=== PATIENT | female | born 1980 | race Caucasian/White ===

== ENCOUNTER 2017-05-03 05:05 | Inpatient (IN) | payer OTHER ==
[2017-05-03] VITALS (7 sets, daily range): BP systolic 100–134; BP diastolic 57–72
[~2017-05-03] VITALS: Ht 170.2 cm; Wt 120.2 kg
[2017-05-03] MEDS ORDERED: BACITRACIN 50000 UNITS/VIAL ONE ×2 (05:38→06:54)
[2017-05-03] MEDS ORDERED: KETOROLAC TROMETHAMINE INJ 30 MG/ML VIAL ONE (05:38)
[2017-05-03] MEDS ORDERED: BUPIVACAINE MPF 0.5% W/EPI INJ 30 ML VIAL ONE (05:38)
[2017-05-03] MEDS ORDERED: IV SET PRIMARY 1 EA INFUS.SET MC ONE (05:44)
[2017-05-03] MEDS ORDERED: SECONDARY IV SET 1 EA INFUS.SET MC ONE ×2 (05:44→14:09)
[2017-05-03] MEDS ORDERED: IV LR 1000 ML 1,000 ML ONE (05:44)
[2017-05-03] MEDS ORDERED: NEEDLELESS EST SET LARGE BORE 1 EA INFUS.SET MC ONE ×2 (05:44→05:46)
[2017-05-03] MEDS ORDERED: CEFAZOLIN SODIUM/DEXTROSE,ISO 50 ML IV ONE (05:44)
[2017-05-03] MEDS ORDERED: FENTANYL PF 250MCG/5ML AMPUL ONE (06:46)
[2017-05-03] MEDS ORDERED: HYDROMORPHONE INJ 2 MG/ML DISP.SYRIN ONE (07:11)
[2017-05-03] MEDS ORDERED: BUPIVACAINE 0.5 % PF 150 MG/30 ML VIAL ONE (07:47)
[2017-05-03] MEDS ORDERED: CARI350T PO (08:58)
[2017-05-03] MEDS ORDERED: OMEP20TA20 PO (08:58)
[2017-05-03] MEDS ORDERED: IBUP-1482 PO (08:58)
[2017-05-03] MEDS ORDERED: FOLI1TAB16 PO (08:58)
[2017-05-03] MEDS ORDERED: ACET-907 PO (08:58)
[2017-05-03] MEDS ORDERED: HYDROMORPHONE 1 MG/1 ML DISP.SYRIN ONE (09:01)
--- NOTE | 2017-05-03 09:50 | NUR ---
MS RN NOTES RECEIVED PATIENT FROM SURGERY A/OX4 DENIES SOB, DIFFICULTY BREATHING AND STATES PAIN 8/10 AT THIS TIME FROM MOVING. WILL NEED TO SPEAK WITH MD IF CAN GIVE ANY MORE PAIN MEDICATIONS PATIENT WAS JUST GIVEN IN POST OP 0915 DILAUDID. PATIENT NEEDS IN REACH, IMMOBILIZER ON CAP REFILL AND PULSES PRESENT BELOW IMMOBILIZER. PATIENT WITH CALL LIGHT IN REACH, BED LOWERED AND LOCKED, RAILS UXP3 FOR SAFETY AND WILL ROUND Q2H OR LESS PER NEEDS. BED ALARM ON
--- NOTE | 2017-05-03 10:00 | NUR ---
MS RN NOTES NOTIFIED AND SPOKE WITH DR TERRAZAS ABOUT ADMISSION. NOTIFIED PATIENT CRYING IN PAIN AND PER MD ORDER DIALUDID 1MG Q3H PRN. PER PATIENT SHE HAS TAKEN THIS MEDICATION IN THE PAST WITH NO REACTION. OK TO GIVE. NOTIFIED MD PATIENT IS ASTHMATIC AND OK ORDER PRN Q4H ALBUTEROL TREATMENTS FOR PATIENT. MD NGUYEN ALREADY CONTACTED FOR PAIN MANAGEMENT CONSULT AND IS AWARE
[2017-05-03] MEDS ORDERED: HYDROMORPHONE 1 MG/1 ML DISP.SYRIN IV PRN (10:30)
[2017-05-03] MEDS ORDERED: DULCOLAX 10 MG/SUPP.RECT RC PRN (11:00)
[2017-05-03] MEDS ORDERED: SENOKOT 8.6 MG TABLET PO PRN (11:00)
[2017-05-03] MEDS ORDERED: COLACE 250 MG CAPSULE PO PRN (11:00)
[2017-05-03] MEDS ORDERED: ZOFRAN 4mg/2ML IV PRN (11:00)
[2017-05-03] MEDS ORDERED: AMBIEN 5 MG TABLET PO PRN (11:00)
[2017-05-03] MEDS ORDERED: PROMETHAZINE HCL 25 MG/ML AMPUL IM PRN (11:30)
[2017-05-03] MEDS ORDERED: ALBUTEROL FS 2.5 MG/0.5 ML VIAL.NEB NEB PRN (11:30)
[2017-05-03] MEDS ORDERED: MENTHOL/CETYLPYRD (CEPACOL) 1 LOZ LOZENGE PO PRN (11:30)
[2017-05-03] MEDS ORDERED: oxyCODONE IR immediate release 5 MG CAPSULE PO PRN ×2 (11:30→23:30)
[2017-05-03] MEDS ORDERED: ALBUTEROL FS 2.5 MG/0.5 ML VIAL.NEB NEB SCH (11:30)
[2017-05-03] MEDS ORDERED: MAG HYDROX/AL HYDROX/SIMETH 30 ML UDC PO PRN (11:30)
[2017-05-03] MEDS ORDERED: BISACODYL SUPP (10 MG) 10 MG/SUPP.RECT SUPP.RECT RC PRN (11:30)
[2017-05-03] MEDS ORDERED: NALOXONE HCL 0.4 MG/ML AMPUL IV PRN (11:30)
[2017-05-03] MEDS ORDERED: CLONIDINE HCL 0.1 MG TABLET PO PRN (11:30)
[2017-05-03] MEDS ORDERED: MAGNESIUM HYDROXIDE 30 ML UDC PO PRN (11:30)
[2017-05-03] MEDS ORDERED: diphenhydrAMINE HCL 50 MG CAPSULE PO PRN (11:30)
[2017-05-03] MEDS ORDERED: IV SET PRIMARY PUMP SET 1 EA INFUS.SET MC ONE (12:31)
[2017-05-03] MEDS: IV D5/0.45 NACL 1,000 ML IV PRN (12:37)
[2017-05-03] MEDS: oxyCODONE IR immediate release 5 MG CAPSULE PO PRN (12:55)
[2017-05-03] MEDS: ANCEF 1 G in IV D5W 50 ML IV SCH ×2 (14:16→22:49)
[2017-05-03] MEDS: HYDROMORPHONE 1 MG/1 ML DISP.SYRIN SQ PRN ×3 (14:21→20:55)
--- NOTE | 2017-05-03 16:50 | NUR ---
MS RN NOTES PATIENT REFUSING DVT PUMPS. EDUCATED ON IMPORTANCE AND PATIENT STILL REFUSING. STILL HAS COMPRESSION SOCKS ON. PATIENT DEMANDING TO GO SMOKE. EDUCATED ON RISKS OF SMOKING AND STATED WE HAVE A NICODERM PATCH I CAN GIVE HER. PATIENT REFUSING. SIGNED SMOKING PAPER
[2017-05-03] MEDS: DOCUSATE SODIUM 100 MG CAPSULE PO SCH (17:30)
--- NOTE | 2017-05-03 18:52 | NUR ---
MS RN CLOSING PATIENT STABLE ALL DUE MEDS GIVEN AND ALL NEEDS MET. PAIN MANAGED WITH PRN MEDICATIONS AND NON PHARM MEASURES. PATIENT WITH IMMOBILIZER STILL ON AND STILL REFUSING DVT PUMPS. PATIENT EDUCATED AND STATES UNDERSTANDING OF THEIR USE. PATIENT CALL LIGHT IN REACH, BED LOWERED AND LOCKED, RAILS UPX3 FOR SAFETY AND WILL ENDORSE CARE TO RN FOR RUSSELL
--- NOTE | 2017-05-03 19:30 | NUR ---
MS RN INITIAL NOTE RECEIVED PT AWAKE AND ALERT ORIENTED X4, S/P LEFT KNEE ARTHROTOMY, ACCORDING TO PT PAIN IS BEING WELL MANAGED WITH CURRENT PAIN MEDICATION REGIMENT, PT IS CLEAN/DRY AND COMFORTABLE, NO RESPIRATORY DISTRESS NOTED DURING PHYSICAL ASSESSMENT, WILL CONTINUE TO MONITOR CLOSELY.
[2017-05-03] MEDS ORDERED: PANTOPRAZOLE 40 MG TABLET.DR PO SCH (22:00)
[2017-05-03] MEDS ORDERED: NICOTINE PATCH (21MG) 21 MG PATCH.TD24 TD ONE (22:36)
[2017-05-03] MEDS ORDERED: NICOTINE PATCH (21MG) 21 MG PATCH.TD24 TD SCH (23:00)
[2017-05-04] MEDS: HYDROMORPHONE 1 MG/1 ML DISP.SYRIN SQ PRN ×4 (01:54→12:31)
--- NOTE | 2017-05-04 07:11 | NUR ---
MS RN CLOSING NOTE PT REMAINED STABLE DURING SORT LINE, NO SIGNIFICANT CHANGES IN STATUS NOTED, WILL ENDORSE TO INCOMING NURSE FOR RUSSELL.
--- NOTE | 2017-05-04 07:30 | NUR ---
MS RN OPENING RECEIVED PATIENT A/OX4 PAIN MANAGED WITH PRN MEDICATIONS. PATIENT DENIES SOB OR DIFFICULTY BREATHING. IMMOBILIZER IN PLACE ON LEFT LEG. PATIENT WITH CALL LIGHT IN REACH, BED LOWERED AND LOCKED, RAILS UPX3 FOR SAFETY AND WILL ROUND Q2H OR LESS PER NEEDS
[2017-05-04] MEDS: IV D5/0.45 NACL 1,000 ML IV PRN (07:43)
[2017-05-04] MEDS: oxyCODONE IR immediate release 5 MG CAPSULE PO PRN (07:43)
--- NOTE | 2017-05-04 07:44 | NUR ---
MS RN NOTES PATIENT REQUESTING OXY UNABLE TO WAIT FOR 15MG TO BE VERIFIED. GAVE 5MG PER PATIENT REQUEST
[2017-05-04 08:00] VITALS: BP 145/87
[2017-05-04] MEDS: DOCUSATE SODIUM 100 MG CAPSULE PO SCH (08:01)
[2017-05-04] MEDS ORDERED: NICOTINE PATCH (21MG) 21 MG PATCH.TD24 TD SCH (09:00)
[2017-05-04] MEDS ORDERED: FOLIC ACID 1 MG TABLET PO SCH (09:00)
--- NOTE | 2017-05-04 11:40 | NUR ---
MS RN NOTES MESSAGE TO DR AVALOS /VINCE TO SEE IF ANY DISCHARGE INFORMATION NEEDING TO BE GIVEN TO PATIENT PRIOR TO DC
--- NOTE | 2017-05-04 13:41 | NUR ---
MS RN NOTES CASE MANAGEMENT CALLED AND THEY WILL SET UP HOME PHYSICAL THERAPY FOR PATIENT. PATIENT WILL HAVE HELP FROM FAMILY AT HOME. SPOKE WITH VINCE PEREIRA AND PATIENT IS CLEARED FOR DISCHARGE SHE ALREADY HAS AN APPOINTMENT SET UP WITH THEIR OFFICE
--- NOTE | 2017-05-04 14:12 | NUR ---
MS SUPERVISOR PACKING ROOM PATIENT EDUCATED ON DC AND STATED UNDERSTANDING. IV REMOVED PRESSURE AND DRESSING APPLIED NO BLEEDING. PATIENT GIVEN RX FROM DR NGUYEN AND EDUCATED ON DC. PATIENT BELONGINGS ALL ACCOUNTED FOR AND SIGNED. DC SIGNED. PATIENT ASSISTED TO WHEELCHAIR AND BSC ORDERED FOR PATIENT AND WALKER TAKEN WITH PATIENT WELL. PATIENT LEFT IN STABLE CONDITION NO COMPLICATIONS NOTED. ASSISTED TO CAR WITH SHANTA MONTOYA AND MYSELF.
== END 2017-05-04 14:10 | disposition home health service (06) | DRG 500 ==
LOC: DS 05:05 → MEDSG2 10:01
PROVIDERS: ADMIT Specialist; ATTEND Nurse Practitioner Acute Care
PROC: 0LUR07Z Supplement Left Knee Tendon with Autologous Tissue Substitute, Open Approach (ICD-10-PCS; principal; 2017-05-03 07:09)
PROC: 0LBW0ZZ Excision of Left Foot Tendon, Open Approach (ICD-10-PCS; principal; 2017-05-03 07:09)
DX: S76.112A Strain of left quadriceps muscle, fascia and tendon, initial encounter (principal); E43 Unspecified severe protein-calorie malnutrition; Z68.41 Body mass index [BMI] 40.0-44.9, adult; F17.210 Nicotine dependence, cigarettes, uncomplicated; J45.909 Unspecified asthma, uncomplicated; E66.01 Morbid (severe) obesity due to excess calories; K21.9 Gastro-esophageal reflux disease without esophagitis; M24.562 Contracture, left knee; X58.XXXA Exposure to other specified factors, initial encounter; Y93.9 Activity, unspecified; Y92.009 Unspecified place in unspecified non-institutional (private) residence as the place of occurrence of the external cause; Y99.9 Unspecified external cause status
CPT/HCPCS: 84703-TC; 97001-TC; 97116-TC; 97530-TC; A4217; A6253; A6402; C1713; J0690; J1100; J1170; J1885; J2001; J2370; J2704; J3010; J3490; J7060; J7120; L1830